=== PATIENT | female | born 1955 | race Two or more races ===

== ENCOUNTER 2016-07-14 17:39 | Inpatient (IN) | payer MEDICAID ==
[~2016-07-14] VITALS: Ht 154.9 cm; Wt 83.0 kg
[~2016-07-14 17:39] MED LIST: ASCO250T13 PO; ASPI81CH43 PO; ATOR20TA PO; CHOL20009 PO; DEXL30CA4 PO; DULO60CA PO; INSLANTI SC; METF-312 PO; TRAZ100T2 PO
[2016-07-15] MEDS ORDERED: SODIUM CHLORIDE 0.9% 500 ML IVB ONE (09:25)
[2016-07-15] MEDS ORDERED: IOHEXOL 300 MG/ML 100ML BOTTLE IJ ONE (09:28)
[2016-07-15] MEDS ORDERED: MORPHINE SULF INJ 2 MG/ML SYRINGE 1ML IV ONE (09:30)
[2016-07-15] MEDS ORDERED: ONDANSETRON HCL 4 MG/2 ML VIAL IV ONE (09:30)
[2016-07-15 10:40] LABS: Basophils # (auto) 0 uL; Basophils % (auto) 0.7 % (0.0-2.0); DEFINITIVE VIEW TRANSMISSION; Eosinophils # (auto) 0.2 uL; Eosinophils % (auto) 2.9 % (0.0-7.0); Hematocrit 33.1 % (36.0-46.0); Hemoglobin 10.3 g/dL (12.2-16.2); Lymphocytes % (auto) 15.1 % (10.0-50.0); Mean Corpuscular Hemoglobin 25.5 pg (28.0-32.0); Mean Corpuscular Hgb Conc. 31.1 g/dL (32.0-36.0); Mean Corpuscular Volume 81.7 fL (80.0-100.0); Monocytes # (auto) 0.4 uL; Neutrophils # (auto) 5.1 uL; Neutrophils % (auto) 75.3 % (37.0-80.0); Platelet Count (auto) 356 10^3/uL (140-450); Red Cell Distribution Width 16.1 % (11.6-16.0); White Blood Cell 6.8 10^3/uL (4.4-10.8)
[2016-07-15 11:04] LABS: Albumin 3.2 g/dL (3.4-5.0); Calcium 8.4 mg/dL (8.5-10.1); Potassium 3.6 mmol/L (3.5-5.1)
[2016-07-15 11:06] LABS: BUN/Creatinine Ratio 16.7
[2016-07-15 11:09] LABS: Bilirubin, Total 0.5 mg/dL (0.2-1.0); Total Protein 7.6 g/dL (6.4-8.2)
[2016-07-15] MEDS ORDERED: VANCOMYCIN PER PHARMACY 0 MG IV SCH (12:45)
[2016-07-15] MEDS ORDERED: PIPERACILLIN-TAZOB 3.375GM 100 ML IV ONE (12:45)
[2016-07-15] MEDS ORDERED: MORPHINE SULF INJ 2 MG/ML SYRINGE 1ML IV PRN (12:45)
[2016-07-15] MEDS ORDERED: VANCOMYCIN 1GM/250ML D5W 250 ML IV ONE (12:45)
[2016-07-15] MEDS ORDERED: DEXTROSE (50%) 50ML SYRG IV PRN (12:45)
[2016-07-15] MEDS ORDERED: NITROGLYCERIN 0.4 MG SL TAB SL PRN (12:45)
[2016-07-15] MEDS: SODIUM CHLORIDE 0.9% 1,000 ML IV SCH ×2 (12:57→22:53)
[2016-07-15] MEDS: ENOXAPARIN SOD 40 MG/0.4 ML SYRINGE SC SCH (12:58)
[2016-07-15 13:15] LABS: INR 1.07 (0.9-1.15); Partial Thromboplastin Time 35.4 sec (22.64-33.71)
[2016-07-15] MEDS: AZITHROMYCIN 500MG/D5W 250ML 250 ML IV SCH (13:15)
[2016-07-15] MEDS: VANCOMYCIN 1GM/250ML D5W 250 ML IV SCH (14:41)
[2016-07-15] MEDS ORDERED: OME20T PO (16:52)
[2016-07-15] MEDS ORDERED: AMLO10TA2 PO (16:52)
[2016-07-15] MEDS ORDERED: CYAN1TAB14 PO (16:52)
[2016-07-15] MEDS ORDERED: SITA100T7 PO (16:52)
[2016-07-15] MEDS ORDERED: ATOR20TA50 PO (16:59)
[2016-07-15] MEDS ORDERED: MULT-908 OR (16:59)
[2016-07-15] MEDS: ACCU-CHEK COMFORT CURVE STRIP VI SCH ×2 (17:00→22:00)
[2016-07-15] MEDS: PIPERACILLIN-TAZOB 3.375GM 100 ML IV SCH (17:50)
[2016-07-15] MEDS ORDERED: InsuLIN REG 1unit/0.01ml Soln (100units/ml) SC SCH (18:00)
[2016-07-15] MEDS ORDERED: ACCU-CHEK COMFORT CURVE STRIP VI SCH (18:00)
[2016-07-15] MEDS: InsuLIN REG 1unit/0.01ml Soln (100units/ml) SC SCH ×2 (18:12→22:00)
[2016-07-15] MEDS: MORPHINE SULF INJ 2 MG/ML SYRINGE 1ML IV PRN (18:22)
[2016-07-15 20:00] VITALS: BP 117/69
[2016-07-15] MEDS: HYDROcodone-ACET 5/325MG TAB PO PRN (21:09)
[2016-07-16] MEDS: PIPERACILLIN-TAZOB 3.375GM 100 ML IV SCH ×5 (00:36→22:59)
[2016-07-16] MEDS: VANCOMYCIN 1GM/250ML D5W 250 ML IV SCH ×2 (04:00→18:26)
[2016-07-16 05:21] VITALS: BP 116/68
[2016-07-16 06:32] LABS: Basophils # (auto) 0 uL; Basophils % (auto) 0.8 % (0.0-2.0); DEFINITIVE VIEW TRANSMISSION; Eosinophils # (auto) 0.3 uL; Eosinophils % (auto) 4.5 % (0.0-7.0); Hematocrit 32.5 % (36.0-46.0); Hemoglobin 10.1 g/dL (12.2-16.2); Lymphocytes # (auto) 1.1 uL; Lymphocytes % (auto) 17.7 % (10.0-50.0); Mean Corpuscular Hemoglobin 25.3 pg (28.0-32.0); Mean Corpuscular Hgb Conc. 31.2 g/dL (32.0-36.0); Mean Platelet Volume 6.6 fL (7.4-10.4); Monocytes # (auto) 0.4 uL; Neutrophils # (auto) 4.4 uL; Platelet Count (auto) 360 10^3/uL (140-450); Red Cell Distribution Width 15.4 % (11.6-16.0); White Blood Cell 6.3 10^3/uL (4.4-10.8)
[2016-07-16] MEDS: ACCU-CHEK COMFORT CURVE STRIP VI SCH ×4 (06:56→21:18)
[2016-07-16] MEDS: InsuLIN REG 1unit/0.01ml Soln (100units/ml) SC SCH ×4 (06:56→21:18)
[2016-07-16 07:03] LABS: Albumin 2.8 g/dL (3.4-5.0); BUN/Creatinine Ratio 16.7; Bilirubin, Total 0.5 mg/dL (0.2-1.0); Calcium 7.7 mg/dL (8.5-10.1); Potassium 3.8 mmol/L (3.5-5.1)
[2016-07-16 07:08] LABS: Urine Bilirubin Negative (Negative); Urine Blood Negative /uL (Negative); Urine Color Yellow (Yellow); Urine Glucose Normal (Normal); Urine Ketone Negative (Negative); Urine Nitrite Negative (Negative); Urine RBC 2 /hpf (0 - 4); Urine Squamous Epithelial Cell FEW /hpf (<5); Urine Urobilinogen Normal (Negative); Urine pH 5.5 (5.0-8.0)
[2016-07-16 08:35] VITALS: BP 125/69
[2016-07-16] MEDS: SODIUM CHLORIDE 0.9% 1,000 ML IV SCH ×2 (08:39→18:39)
[2016-07-16] MEDS: AZITHROMYCIN 500MG/D5W 250ML 250 ML IV SCH (10:00)
[2016-07-16] MEDS: ENOXAPARIN SOD 40 MG/0.4 ML SYRINGE SC SCH (12:21)
[2016-07-16 12:25] VITALS: BP 103/57
[2016-07-16] MEDS: MORPHINE SULF INJ 2 MG/ML SYRINGE 1ML IV PRN ×2 (14:23→21:10)
[2016-07-16] MEDS ORDERED: FUROSEMIDE INJECTION 10 ML ONE (16:33)
[2016-07-16] MEDS ORDERED: LORazepam 2MG/ML-1ML VIAL ONE (16:34)
[2016-07-16] MEDS ORDERED: FUROSEMIDE 20 MG/2 ML VIAL IV ONE (16:45)
[2016-07-16 17:33] VITALS: BP 125/54
[2016-07-16] MEDS: ALBUTEROL SULF 2.5 MG/0.5ML(0.5%) NEB SOLN NEB SCH ×2 (18:25→22:22)
[2016-07-16 20:00] VITALS: BP 123/73
[2016-07-16 21:57] VITALS: BP 123/73
[2016-07-16] MEDS: BUDESONIDE (INHALATION) 0.5 MG/2 ML NEB NEB SCH (22:22)
[2016-07-16] MEDS: LORazepam 2MG/ML-1ML VIAL IV PRN (22:50)
[2016-07-17] VITALS (8 sets, daily range): BP systolic 104–123; BP diastolic 49–73
[2016-07-17] MEDS: VANCOMYCIN 1GM/250ML D5W 250 ML IV SCH ×3 (02:02→20:28)
[2016-07-17 02:12] LABS: Basophils # (auto) 0 uL; Basophils % (auto) 0.2 % (0.0-2.0); DEFINITIVE VIEW TRANSMISSION; Eosinophils # (auto) 0 uL; Eosinophils % (auto) 0.3 % (0.0-7.0); Hematocrit 34.3 % (36.0-46.0); Hemoglobin 10.7 g/dL (12.2-16.2); Lymphocytes % (auto) 5.7 % (10.0-50.0); Mean Corpuscular Hemoglobin 25.5 pg (28.0-32.0); Mean Corpuscular Hgb Conc. 31.2 g/dL (32.0-36.0); Mean Corpuscular Volume 81.7 fL (80.0-100.0); Mean Platelet Volume 6.9 fL (7.4-10.4); Monocytes # (auto) 0.6 uL; Monocytes % (auto) 3.6 % (0.0-12.0); Neutrophils # (auto) 15.3 uL; Neutrophils % (auto) 90.2 % (37.0-80.0); Platelet Count (auto) 398 10^3/uL (140-450); Red Cell Distribution Width 16.2 % (11.6-16.0)
[2016-07-17] MEDS: ALBUTEROL SULF 2.5 MG/0.5ML(0.5%) NEB SOLN NEB SCH ×6 (02:28→21:54)
[2016-07-17 02:39] LABS: Albumin 2.8 g/dL (3.4-5.0); BUN/Creatinine Ratio 16.4; Bilirubin, Total 0.8 mg/dL (0.2-1.0); Potassium 3.6 mmol/L (3.5-5.1); Total Protein 7.1 g/dL (6.4-8.2)
[2016-07-17] MEDS: SODIUM CHLORIDE 0.9% 1,000 ML IV SCH ×2 (04:39→14:35)
[2016-07-17] MEDS: PIPERACILLIN-TAZOB 3.375GM 100 ML IV SCH ×3 (05:02→19:09)
[2016-07-17] MEDS: ACCU-CHEK COMFORT CURVE STRIP VI SCH ×4 (06:01→22:00)
[2016-07-17] MEDS: InsuLIN REG 1unit/0.01ml Soln (100units/ml) SC SCH ×4 (06:33→22:45)
[2016-07-17] MEDS: BUDESONIDE (INHALATION) 0.5 MG/2 ML NEB NEB SCH ×2 (07:18→21:54)
[2016-07-17] MEDS: AZITHROMYCIN 500MG/D5W 250ML 250 ML IV SCH (09:00)
[2016-07-17] MEDS: ENOXAPARIN SOD 40 MG/0.4 ML SYRINGE SC SCH (09:01)
[2016-07-17] MEDS ORDERED: FUROSEMIDE 20 MG/2 ML VIAL IV ONE (09:15)
[2016-07-17] MEDS ORDERED: IOHEXOL 350 MG/ML 100ML IJ ONE (09:37)
[2016-07-17] MEDS: LORazepam 2MG/ML-1ML VIAL IV PRN ×2 (11:36→19:09)
[2016-07-17] MEDS: HYDROcodone-ACET 5/325MG TAB PO PRN (22:47)
[2016-07-18] VITALS (8 sets, daily range): BP systolic 100–121; BP diastolic 43–69
[2016-07-18] MEDS: SODIUM CHLORIDE 0.9% 1,000 ML IV SCH ×3 (00:39→20:39)
[2016-07-18] MEDS: LORazepam 2MG/ML-1ML VIAL IV PRN ×4 (01:06→21:07)
[2016-07-18] MEDS: PIPERACILLIN-TAZOB 3.375GM 100 ML IV SCH ×4 (01:08→18:19)
[2016-07-18] MEDS: VANCOMYCIN 1GM/250ML D5W 250 ML IV SCH ×3 (03:55→20:41)
[2016-07-18 06:06] LABS: Basophils # (auto) 0 uL; Basophils % (auto) 0.4 % (0.0-2.0); DEFINITIVE VIEW TRANSMISSION; Eosinophils # (auto) 0.3 uL; Eosinophils % (auto) 3.1 % (0.0-7.0); Hemoglobin 9.6 g/dL (12.2-16.2); Lymphocytes # (auto) 1.1 uL; Lymphocytes % (auto) 10.9 % (10.0-50.0); Mean Corpuscular Hemoglobin 25.5 pg (28.0-32.0); Mean Corpuscular Hgb Conc. 30.9 g/dL (32.0-36.0); Mean Corpuscular Volume 82.6 fL (80.0-100.0); Mean Platelet Volume 6.8 fL (7.4-10.4); Monocytes # (auto) 0.7 uL; Monocytes % (auto) 6.8 % (0.0-12.0); Neutrophils # (auto) 7.7 uL; Neutrophils % (auto) 78.8 % (37.0-80.0); Platelet Count (auto) 348 10^3/uL (140-450); White Blood Cell 9.8 10^3/uL (4.4-10.8)
[2016-07-18 06:25] LABS: BUN/Creatinine Ratio 18.6; Potassium 3.3 mmol/L (3.5-5.1)
[2016-07-18] MEDS: ACCU-CHEK COMFORT CURVE STRIP VI SCH ×4 (06:31→22:00)
[2016-07-18] MEDS: BUDESONIDE (INHALATION) 0.5 MG/2 ML NEB NEB SCH ×3 (06:50→22:11)
[2016-07-18] MEDS: ALBUTEROL SULF 2.5 MG/0.5ML(0.5%) NEB SOLN NEB SCH ×5 (07:00→22:09)
[2016-07-18] MEDS: InsuLIN REG 1unit/0.01ml Soln (100units/ml) SC SCH ×4 (07:04→21:20)
[2016-07-18] MEDS: AZITHROMYCIN 500MG/D5W 250ML 250 ML IV SCH (09:56)
[2016-07-18] MEDS: ENOXAPARIN SOD 40 MG/0.4 ML SYRINGE SC SCH (09:56)
[2016-07-18] MEDS: HYDROcodone-ACET 5/325MG TAB PO PRN ×2 (09:57→21:22)
[2016-07-18] MEDS: FUROSEMIDE 40 MG/4 ML VIAL IV SCH (17:46)
[2016-07-19] VITALS (7 sets, daily range): BP systolic 104–123; BP diastolic 45–70
[2016-07-19] MEDS: PIPERACILLIN-TAZOB 3.375GM 100 ML IV SCH ×4 (01:10→20:09)
[2016-07-19] MEDS: ALBUTEROL SULF 2.5 MG/0.5ML(0.5%) NEB SOLN NEB SCH ×6 (02:26→22:11)
[2016-07-19] MEDS: LORazepam 2MG/ML-1ML VIAL IV PRN ×3 (03:58→20:09)
[2016-07-19] MEDS: VANCOMYCIN 1GM/250ML D5W 250 ML IV SCH ×3 (03:59→21:45)
[2016-07-19 05:41] LABS: Basophils # (auto) 0 uL; Basophils % (auto) 0.7 % (0.0-2.0); DEFINITIVE VIEW TRANSMISSION; Eosinophils # (auto) 0.4 uL; Eosinophils % (auto) 5.6 % (0.0-7.0); Hematocrit 30.2 % (36.0-46.0); Hemoglobin 9.6 g/dL (12.2-16.2); Lymphocytes # (auto) 1.1 uL; Mean Corpuscular Hgb Conc. 31.9 g/dL (32.0-36.0); Mean Corpuscular Volume 81.3 fL (80.0-100.0); Mean Platelet Volume 6.9 fL (7.4-10.4); Monocytes # (auto) 0.4 uL; Neutrophils # (auto) 5.1 uL; Neutrophils % (auto) 72.7 % (37.0-80.0); Platelet Count (auto) 341 10^3/uL (140-450); Red Cell Distribution Width 16.1 % (11.6-16.0)
[2016-07-19 05:51] LABS: Albumin 2.5 g/dL (3.4-5.0); BUN/Creatinine Ratio 19.4; Bilirubin, Total 0.6 mg/dL (0.2-1.0); Calcium 8.4 mg/dL (8.5-10.1); Potassium 3.3 mmol/L (3.5-5.1); Total Protein 6.9 g/dL (6.4-8.2)
[2016-07-19] MEDS: FUROSEMIDE 40 MG/4 ML VIAL IV SCH ×2 (06:00→18:21)
[2016-07-19] MEDS: SODIUM CHLORIDE 0.9% 1,000 ML IV SCH ×2 (06:27→15:39)
[2016-07-19] MEDS: InsuLIN REG 1unit/0.01ml Soln (100units/ml) SC SCH ×4 (06:44→22:25)
[2016-07-19] MEDS: ACCU-CHEK COMFORT CURVE STRIP VI SCH ×4 (06:48→21:46)
[2016-07-19] MEDS: BUDESONIDE (INHALATION) 0.5 MG/2 ML NEB NEB SCH ×2 (06:50→19:37)
[2016-07-19] MEDS: POTASSIUM CHL 20 Meq TABLET PO SCH (10:05)
[2016-07-19] MEDS: ENOXAPARIN SOD 40 MG/0.4 ML SYRINGE SC SCH (10:05)
[2016-07-19] MEDS: AZITHROMYCIN 500MG/D5W 250ML 250 ML IV SCH (10:06)
[2016-07-19] MEDS: HYDROcodone-ACET 5/325MG TAB PO PRN (21:40)
[2016-07-20] MEDS: PIPERACILLIN-TAZOB 3.375GM 100 ML IV SCH ×3 (02:13→13:18)
[2016-07-20] MEDS: ALBUTEROL SULF 2.5 MG/0.5ML(0.5%) NEB SOLN NEB SCH ×4 (02:15→14:42)
[2016-07-20] MEDS: SODIUM CHLORIDE 0.9% 1,000 ML IV SCH (02:39)
[2016-07-20] MEDS: VANCOMYCIN 1GM/250ML D5W 250 ML IV SCH ×2 (03:33→11:46)
[2016-07-20 04:35] VITALS: BP 108/70
[2016-07-20] MEDS: FUROSEMIDE 40 MG/4 ML VIAL IV SCH ×2 (05:30→18:11)
[2016-07-20] MEDS: ACCU-CHEK COMFORT CURVE STRIP VI SCH ×3 (05:30→17:00)
[2016-07-20] MEDS: InsuLIN REG 1unit/0.01ml Soln (100units/ml) SC SCH ×3 (05:31→17:00)
[2016-07-20] MEDS: BUDESONIDE (INHALATION) 0.5 MG/2 ML NEB NEB SCH (07:40)
[2016-07-20 08:00] VITALS: BP 115/65
[2016-07-20 09:00] VITALS: BP 115/75
[2016-07-20] MEDS: AZITHROMYCIN 500MG/D5W 250ML 250 ML IV SCH (09:35)
[2016-07-20] MEDS: ENOXAPARIN SOD 40 MG/0.4 ML SYRINGE SC SCH (09:36)
[2016-07-20] MEDS: POTASSIUM CHL 20 Meq TABLET PO SCH (09:36)
[2016-07-20] MEDS: LORazepam 2MG/ML-1ML VIAL IV PRN (09:56)
[2016-07-20 12:36] VITALS: BP 104/56
[2016-07-20 16:29] VITALS: BP 133/75
== END 2016-07-20 18:30 | disposition home or self-care (01) | DRG 190 ==
LOC: ER 17:52 → TELE 17:53 → TELE-WESTW 07-15 17:20
PROVIDERS: ADMIT Internal Medicine; ATTEND Internal Medicine
PROC: 5A09357 Assistance with Respiratory Ventilation, Less than 24 Consecutive Hours, Continuous Positive Airway Pressure (ICD-10-PCS; principal; 2016-07-16)
DX: I21.4 Non-ST elevation (NSTEMI) myocardial infarction (principal); I50.43 Acute on chronic combined systolic (congestive) and diastolic (congestive) heart failure; J18.9 Pneumonia, unspecified organism; E11.9 Type 2 diabetes mellitus without complications; I11.0 Hypertensive heart disease with heart failure; E66.01 Morbid (severe) obesity due to excess calories; L02.211 Cutaneous abscess of abdominal wall; F32.9 Major depressive disorder, single episode, unspecified; G89.29 Other chronic pain; M54.9 Dorsalgia, unspecified; L03.311 Cellulitis of abdominal wall; E78.5 Hyperlipidemia, unspecified; I44.0 Atrioventricular block, first degree; F41.9 Anxiety disorder, unspecified; Z82.3 Family history of stroke; Z82.49 Family history of ischemic heart disease and other diseases of the circulatory system; Z83.3 Family history of diabetes mellitus; Z87.891 Personal history of nicotine dependence; Z88.1 Allergy status to other antibiotic agents; Z88.2 Allergy status to sulfonamides; Z91.09 Other allergy status, other than to drugs and biological substances; Z90.49 Acquired absence of other specified parts of digestive tract; Z90.710 Acquired absence of both cervix and uterus; Z85.9 Personal history of malignant neoplasm, unspecified; Z68.34 Body mass index [BMI] 34.0-34.9, adult
CPT/HCPCS: 36415; 36600; 71010; 71020; 71275; 74177; 80048; 80053; 80061; 80202; 81001; 82805; 82962; 83036; 83605; 84484; 85025; 85610; 85652; 85730; 87040; 87077; 87086; 87186; 87205; 93005; 93306; 94640; 94761; 96361; 96365; 96372; 96375; J1815; J2405; J2543

== ENCOUNTER → 2016-12-31 | Emergency (ER) | payer MEDICAID ==
[~2016-12-31] MED LIST changes: +AMLO10TA2 PO; -ATOR20TA PO; +ATOR20TA50 PO; +CYAN1TAB14 PO; -DEXL30CA4 PO; -METF-312 PO; +METF-370 PO; +MULT-908 OR; +OME20T PO; +SITA100T7 PO
== END | disposition left against medical advice (07) ==
LOC: ER 21:57
DX: R51 Headache (principal); R21 Rash and other nonspecific skin eruption; Z53.21 Procedure and treatment not carried out due to patient leaving prior to being seen by health care provider

== ENCOUNTER 2017-01-01 06:53 | Emergency (ER) | payer MEDICAID ==
[~2017-01-01] VITALS: Ht 152.4 cm; Wt 74.8 kg
[2017-01-01 08:00] VITALS: BP 100/59
== END 2017-01-01 10:54 | disposition home or self-care (01) ==
LOC: ER 06:53
DX: L03.311 Cellulitis of abdominal wall (principal); L02.211 Cutaneous abscess of abdominal wall; E66.9 Obesity, unspecified; Z68.32 Body mass index [BMI] 32.0-32.9, adult; E11.9 Type 2 diabetes mellitus without complications; E78.5 Hyperlipidemia, unspecified; K21.9 Gastro-esophageal reflux disease without esophagitis; I10 Essential (primary) hypertension; Z79.899 Other long term (current) drug therapy; Z79.82 Long term (current) use of aspirin; Z90.49 Acquired absence of other specified parts of digestive tract; Z90.710 Acquired absence of both cervix and uterus; Z87.891 Personal history of nicotine dependence; Z88.1 Allergy status to other antibiotic agents